=== PATIENT | female | born 1950 ===

== ENCOUNTER 2022-11-27 13:33 | Emergency (ER) | payer SELFPAY ==
[2022-11-27 13:44] VITALS: BP 164/74; PULSE 80; RESP 18; TEMP 37.8; O2SAT 96; BMI 26.5
== END 2022-11-27 14:19 | disposition left against medical advice (07) ==
LOC: ED 14:11
DX: Z53.21 Procedure and treatment not carried out due to patient leaving prior to being seen by health care provider (principal)
CPT/HCPCS: 87502; 87634; 87635